=== PATIENT | male | born 1950 | race Caucasian/White ===

== ENCOUNTER → 2018-11-10 | Outpatient (CLI) | payer BC ==
[~2018-11-10] MED LIST: ASPI-496 PO; LOSA25TA25 PO
== END | disposition home or self-care (01) ==
LOC: CFH 06:36
PROVIDERS: ATTEND Internal Medicine Cardiovascular Disease
DX: I35.8 Other nonrheumatic aortic valve disorders (principal); I10 Essential (primary) hypertension; E78.5 Hyperlipidemia, unspecified; E11.9 Type 2 diabetes mellitus without complications
CPT/HCPCS: 93306

== ENCOUNTER → 2019-05-11 | Outpatient (CLI) | payer BC ==
[~2019-05-11] MED LIST changes: +ASCO500T8 PO; +ATOR40TA78 PO; +CARV6.252 PO; +CHOL20002 PO
[2019-05-11 08:59] LABS: ALANINE AMINOTRANSFERASE 41 U/L (12-78); ALBUMIN 3.9 g/dL (3.4-5.0); ANION GAP 6 mmol/L (5-15); CALCIUM 9.2 mg/dL (8.5-10.1); CHLORIDE 107 mmol/L (98-107); CREATININE 0.97 mg/dL (0.7-1.3)
[2019-05-11 09:01] LABS: ALKALINE PHOSPHATASE 87 U/L (45-117); BILIRUBIN,TOTAL 1.1 mg/dL (0.2-1.0); TOTAL PROTEIN 7.7 g/dL (6.4-8.2)
== END | disposition home or self-care (01) ==
LOC: STAR 07:49
PROVIDERS: ATTEND Orthopaedic Surgery
DX: Z01.818 Encounter for other preprocedural examination (principal); S83.241A Other tear of medial meniscus, current injury, right knee, initial encounter; M17.9 Osteoarthritis of knee, unspecified; M25.561 Pain in right knee; I44.0 Atrioventricular block, first degree; X58.XXXA Exposure to other specified factors, initial encounter; Y93.89 Activity, other specified; Y92.89 Other specified places as the place of occurrence of the external cause; Y99.8 Other external cause status
CPT/HCPCS: 36415; 80053; 93005

== ENCOUNTER → 2020-08-09 | Outpatient (CLI) | payer BC | END | disposition home or self-care (01) | LOC: CVU 06:30 | PROVIDERS: ATTEND Internal Medicine Cardiovascular Disease | DX: I08.2 Rheumatic disorders of both aortic and tricuspid valves (principal); I65.21 Occlusion and stenosis of right carotid artery; I10 Essential (primary) hypertension | CPT/HCPCS: 93306; 93880 ==

== ENCOUNTER 2021-03-21 12:41 | Emergency (ER) | payer BC, MEDICARE ==
[~2021-03-21] VITALS: Ht 185.4 cm; Wt 95.4 kg
[2021-03-21] MEDS ORDERED: FAMOTIDINE 20 MG TABLET PO ONE (13:00)
--- NOTE | 2021-03-21 13:53 | NUR ---
SUB PRIOR: PT TO ROOM FROM [facility]
--- NOTE | 2021-03-21 14:28 | NUR ---
ASSUMED CARE. PT. WAS PLACED ON THE MONITOR. PT. IS A & O X 4 WITH A GCS OF 15. PT. HAS C/O RIGHT SIDES FACIAL EDEMA THAT EXTENDS INTO HIS LIPS. PT. IS TAKING LISINOPRIL. PT.'S LUNGS ARE CTA. PT. DENIES FEELING SOB. PULSE OX IS 97% ON ROOM AIR. PT.'S CAP REFILL IS BRISK, LESS THAN 3 SECONDS. PT. IS PINK, WARM AND DRY. PT.'S ABD. IS SOFT AND ROUND WITH BS + X 4 QUADS. PULSES ARE + THROUGHOUT. PT. NAZARIO WNL. PT. WAS MEDICATED ORDERED. SIDERAILS REMAIN UP X 2 WITH THE CALL LIGHT IN PLACE.
[2021-03-21] MEDS ORDERED: DIPHENHYDRAMINE 25 MG CAPSULE PO ONE (14:30)
[2021-03-21] MEDS ORDERED: DIPHENHYDRAMINE 50 MG CAPSULE ONE (14:33)
[2021-03-21] MEDS ORDERED: FAMOTIDINE 20 MG TABLET ONE ×2 (14:33→14:41)
[2021-03-21] MEDS ORDERED: DIPHENHYDRAMINE 25 MG CAPSULE ONE (14:35)
--- NOTE | 2021-03-21 16:02 | NUR ---
PT. WAS GIVEN WATER AND IS UP FOR RECHECK.
--- NOTE | 2021-03-21 16:03 | NUR ---
PT.'S FACIAL EDEMA IS DECREASED.
--- NOTE | 2021-03-21 16:42 | NUR ---
THE PT. WAS GIVEN DISCHARGE INSTRUCTIONS AND A SCRIPT WITH UNDERSTANDING VERBALIZED ALONG WITH WILLINGNESS TO COMPLY. PT. WAS AMBULATORY TO THE DISCHARGE DESK.
[2021-03-21 16:43] VITALS: BP 142/90
== END 2021-03-21 16:45 | disposition home or self-care (01) ==
LOC: ED 12:51
DX: T78.3XXA Angioneurotic edema, initial encounter (principal); E78.5 Hyperlipidemia, unspecified; I10 Essential (primary) hypertension; Z90.49 Acquired absence of other specified parts of digestive tract; Z88.5 Allergy status to narcotic agent
CPT/HCPCS: 99285; J7512; Q0163